=== PATIENT | female | born 1990 | race African-American/Black ===

== ENCOUNTER 2019-01-07 10:24 | Emergency (ER) | payer OTHER ==
[~2019-01-07] VITALS: Ht 167.6 cm; Wt 58.1 kg
[2019-01-07 10:33] VITALS: BP 117/78
--- NOTE | 2019-01-07 10:38 | NUR ---
ED Nurse Note: Patient presents to ER due to increased pain in the right 5th finger that radiates to hand for the past few days; Patient was in [place] and injured the affected finger while playing football 4 weeks ago; X-ray was done at that time and result was negative. Patient is not able to straighten the finger. +CMS. Placed patient in room.
--- NOTE | 2019-01-07 11:15 | NUR ---
ED Nurse Note: pt to radiology without xrays done as pt relates she is missing lmp, obtaining urine sample for hcg
[2019-01-07] MEDS ORDERED: IBUPROFEN600 MG ORAL (11:55)
--- NOTE | 2019-01-07 11:58 | NUR ---
ED Nurse Note:finger splint being applied by manager medicaid. pt with good cms remains
--- NOTE | 2019-01-07 12:20 | NUR ---
ED Nurse Note: Patient is being discharged from medical care. D/C instruction and prescription given to patient. All questions were answered. Ambulated out with steady gait with all her belongings.
--- NOTE | 2019-01-07 12:35 | Diagnostic Imaging Report ---
EXAM: XR Right Finger(s), 2 or More Views CLINICAL HISTORY: PAIN TECHNIQUE: Frontal, lateral and oblique views of finger(s) of the right hand. COMPARISON: No relevant prior studies available. FINDINGS: Bones/joints: Unremarkable. No visible displaced fracture. No dislocation. No osseous erosions. Visualized joint spaces appear unremarkable. Soft tissues: Unremarkable. No radiopaque foreign body. IMPRESSION: Unremarkable x-rays of the visualized right fingers.
--- NOTE | 2019-01-09 22:28 | Emergency Room Report ---
History of Present Illness General Chief Complaint: Upper Extremity Injury Source: Patient Present Illness Allergies: Coded Allergies: SUMATRIPTAN (Verified Allergy, Unknown, 01/07/19) Patient History Last Menstrual Period: 12/01/2018 Nursing Documentation-[facility] Past Medical History: No History, Except For Physical Exam Vital Signs Date Time Temp Pulse Resp B/P (MAP) Pulse Ox O2 Delivery O2 Flow Rate FiO2 01/07/19 10:33 98.2 16 117/78 99 Room Air 01/07/19 10:33 86 Medical Decision Making Diagnostic Impression: Primary Impression: Proximal phalanx fracture of finger Labs Test 01/07/19 11:28 Urine HCG, Qualitative Negative (NEGATIVE) Last Vital Signs Date Time Temp Pulse Resp B/P (MAP) Pulse Ox O2 Delivery O2 Flow Rate FiO2 01/07/19 10:33 98.2 86 16 117/78 (91) 99 Room Air Status: improved Disposition: HOME, SELF-CARE Condition: Stable Scripts Ibuprofen* (MOTRIN*) 600 Mg Tablet 600 MG ORAL Q8H PRN for For Pain, #30 TAB 0 Refills Prov: Kamran Robb MD 01/07/19 Referrals: Michael Bates MD NOT CHOSEN [facility]/,REFERRING (PCP) Departure Forms: Return to Work Return to Work in (Days): 1 Other Restrictions: no working out for 4 weeks. Date of injury Patient Instructions: Finger Fracture Kamran Robb MD Jan 09, 2019 22:28
== END 2019-01-07 12:18 | disposition home or self-care (01) ==
LOC: EMR 11:10
DX: M25.541 Pain in joints of right hand (principal)
CPT/HCPCS: 81025; 99283